=== PATIENT | female | born 2000 | race Caucasian/White ===

== ENCOUNTER 2021-11-28 20:31 | Emergency (ER) | payer MEDICAID, OTHER ==
[2021-11-28] MEDS ORDERED: predniSONE 20 MG TAB ONE (21:17)
== END 2021-11-28 21:25 | disposition home or self-care (01) ==
LOC: NAV ERS 20:31
DX: T78.49XA Other allergy, initial encounter (principal)
CPT/HCPCS: 99283; J7512